=== PATIENT | female | born 1970 | race Caucasian/White ===

== ENCOUNTER → 2017-03-23 | Outpatient (CLI) | payer MEDICAID | LOC: FIMAGING 12:21 | PROVIDERS: ATTEND Family Medicine | DX: Z12.31 Encounter for screening mammogram for malignant neoplasm of breast (principal); Z80.3 Family history of malignant neoplasm of breast | CPT/HCPCS: G0202 ==

== ENCOUNTER 2018-01-02 18:05 | Emergency (ER) | payer MEDICAID ==
--- NOTE | 2018-01-02 18:20 | CPEKG ---
Heart Rate: 67 RR Interval: 896 P-R Interval: 164 QRSD Interval: 116 QT Interval: 428 QTC Interval: 452 P [place]: 80 QRS [place]: 41 T Wave [place]: 12 EKG Severity - ABNORMAL ECG - EKG Impression: SINUS RHYTHM EKG Impression: PROBABLE LEFT ATRIAL ABNORMALITY EKG Impression: INCOMPLETE RIGHT BUNDLE BRANCH BLOCK Electronically Signed By: Doug Benson 02-Jan-2018 19:13:50
--- NOTE | 2018-01-02 18:49 | EDPHY ---
H & P Stated Complaint: chest pressure/feels hr is fast for weeks Time Seen by Provider: 01/02/18 18:12 HPI/ROS: CHIEF COMPLAINT: Chest pressure and palpitations HISTORY OF PRESENT ILLNESS: The patient presents the ED with intermittent chest pressure and palpitations for the past several days. The patient denies any pleuritic chest pain, asymmetric calf pain or swelling, exertional chest pain or prior history of arrhythmia. The patient reportedly has been tapering off of her Lamictal to see if this may be responsible for her symptoms. She has been on a fairly stable dose of gabapentin since September. In the emergency department the patient complains only of mild dyspnea. The patient denies any history of tachycardia when she is symptomatic. The patient denies fever, cough or congestion. She does have a remote history of influenza a in October. She takes no additional medications. REVIEW OF SYSTEMS: A comprehensive 10 point review of systems is otherwise negative aside from elements mentioned in the history of present illness. Source: Patient - Personal History LMP (Females 10-55): 1-7 Days Ago Current Tetanus/Diphtheria Vaccine: Unsure - Medical/Surgical History Hx Asthma: No Hx Chronic Respiratory Disease: No Hx Diabetes: No Hx Cardiac Disease: No Hx Renal Disease: No Hx Cirrhosis: No Hx Alcoholism: No Hx HIV/AIDS: No Hx Splenectomy or Spleen Trauma: No Other PMH: denies - Social History Smoking Status: Never smoked - Physical Exam Exam: General Appearance: Alert, no distress Eyes: Pupils equal and round no pallor or injection ENT, Mouth: Mucous membranes moist Respiratory: There are no retractions, lungs are clear to auscultation Cardiovascular: Regular rate and rhythm Gastrointestinal: Abdomen is soft and nontender, no masses, bowel sounds normal Neurological: A&O, normal motor function, normal sensory exam, normal cranial nerves Skin: Warm and dry, no rashes Musculoskeletal: Neck is supple nontender Extremities: symmetrical, full range of motion Psychiatric: Patient is oriented X 3, there is no agitation Constitutional: Initial Vital Signs Temperature (C) 36.7 C 01/02/18 18:08 Heart Rate 72 01/02/18 18:08 Respiratory Rate 18 01/02/18 18:08 Blood Pressure 129/80 H 01/02/18 18:08 O2 Sat (%) 99 01/02/18 18:08 O2 Delivery Mode Room Air Allergies/Adverse Reactions: No Known Allergies Allergy (Unverified 01/02/18 18:07) Home Medications: Medication Instructions Recorded Gabapentin 01/02/18 LaMICtal 01/02/18 Medical Decision Making - Diagnostics EKG Interpretation: EKG: Complete interpretation has been separately recorded in the [facility] archive. Summary impression: Sinus rhythm, rate 67, incomplete right bundle branch block ED Course/Re-evaluation: The patient presents to the ED for several days of intermittent palpitations and mild dyspnea. The patient is noted to be hemodynamically stable upon arrival. She has no obvious arrhythmia noted on her EKG. The patient's D- dimer is negative which I feel adequately excludes pulmonary embolism. Her troponin and TSH are within normal limits as are her CBC and electrolyte panel. Patient was monitored in the emergency department for several hours without any obvious arrhythmia. It is certainly possible her symptoms are related to underlying anxiety or a side effect of her current psychiatric medications. This point time I would like the patient to follow up with her primary care provider and consider follow up with our on-call plastic sheets finishing supervisor for consideration of a Holter monitor. The patient will be discharged home with customary aftercare instructions and return precautions. Differential Diagnosis: Differential diagnosis considered includes arrhythmia, anemia, metabolic abnormality, thyrotoxicosis, pulmonary embolism - Data Points Laboratory Results: Laboratory Results 01/02/18 18:25 01/02/18 18:25 01/02/18 01/02/18 01/02/18 18:25 18:25 18:25 WBC 6.98 10^3/uL 10^3/uL (3.80-9.50) RBC 4.55 10^6/uL 10^6/uL (4.18-5.33) Hgb 13.8 g/dL g/dL (12.6-16.3) Hct 41.4 % % (38.0-47.0) MCV 91.0 fL fL (81.5-99.8) MCH 30.3 pg pg (27.9-34.1) MCHC 33.3 g/dL g/dL (32.4-36.7) RDW 12.2 % % (11.5-15.2) Plt Count 271 10^3/uL 10^3/uL (150-400) MPV 11.0 fL fL (8.7-11.7) Neut % (Auto) 60.5 % % (39.3-74.2) Lymph % (Auto) 31.4 % % (15.0-45.0) Murray % (Auto) 4.7 % % (4.5-13.0) Eos % (Auto) 2.4 % % (0.6-7.6) Baso % (Auto) 0.9 % % (0.3-1.7) Nucleat RBC Rel Count 0.0 % % (0.0-0.2) Absolute Neuts (auto) 4.22 10^3/uL 10^3/uL (1.70-6.50) Absolute Lymphs (auto) 2.19 10^3/uL 10^3/uL (1.00-3.00) Absolute Monos (auto) 0.33 10^3/uL 10^3/uL (0.30-0.80) Absolute Eos (auto) 0.17 10^3/uL 10^3/uL (0.03-0.40) Absolute Basos (auto) 0.06 10^3/uL 10^3/uL (0.02-0.10) Absolute Nucleated RBC 0.00 10^3/uL 10^3/uL (0-0.01) Immature Gran % 0.1 % % (0.0-1.1) Immature Gran # 0.01 10^3/uL 10^3/uL (0.00-0.10) D-Dimer < 0.27 ug/mLFEU ug/mLFEU (0.00-0.50) Sodium 145 mEq/L mEq/L (135-145) Potassium 3.9 mEq/L mEq/L (3.5-5.2) Chloride 105 mEq/L mEq/L (97-110) Carbon Dioxide 27 mEq/l mEq/l (22-31) Anion Gap 13 mEq/L mEq/L (8-16) BUN 11 mg/dL mg/dL (7-23) Creatinine 0.8 mg/dL mg/dL (0.6-1.0) Estimated GFR > 60 Glucose 85 mg/dL mg/dL (70-100) Calcium 9.8 mg/dL mg/dL (8.5-10.4) Troponin I < 0.012 ng/mL ng/mL (0.000-0.034) TSH 2.320 uIU/mL uIU/mL (0.465-4.680) Departure - Departure Disposition: Home, Routine, Self-Care Clinical Impression: Chest pain, Palpitations Condition: Good Instructions: Heart Palpitations (ED) Additional Instructions: 1. The testing done in the emergency department today demonstrates no obvious arrhythmia, thyroid dysfunction, electrolyte disorder, blood clot or cardiac condition. 2. Please schedule a follow-up appointment with your primary care provider. I would recommend following up with Cardiology to see if a Holter monitor may be indicated for further evaluation of your symptoms. You have been given the contact number for Dr. Shani Weinberg. 3. Please return to the ED for markedly worsening symptoms or other concerns. Referrals: Briana Pederson MD [Primary Care Provider] - As per Instructions Shani Weinberg MD [Medical Doctor] - As per Instructions
[2018-01-02 18:52] LABS: PLATELET COUNT 271 10^3/uL (150-400)
[2018-01-02 20:06] VITALS: BP 108/70
== END 2018-01-02 20:06 | disposition home or self-care (01) ==
DX: R00.2 Palpitations (principal); R07.9 Chest pain, unspecified

== ENCOUNTER → 2018-05-16 | Outpatient (CLI) | payer BC, MEDICAID | LOC: FIMAGING 10:46 | PROVIDERS: ATTEND Family Medicine | DX: Z12.31 Encounter for screening mammogram for malignant neoplasm of breast (principal); Z80.3 Family history of malignant neoplasm of breast ==

== ENCOUNTER 2018-10-28 11:48 | Emergency (ER) | payer OTHER, BC ==
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
[2018-10-28 13:51] VITALS: BP 121/73
== END 2018-10-28 13:51 | disposition home or self-care (01) ==
DX: S76.011A Strain of muscle, fascia and tendon of right hip, initial encounter (principal); V43.52XA Car driver injured in collision with other type car in traffic accident, initial encounter; Y92.410 Unspecified street and highway as the place of occurrence of the external cause